=== PATIENT | female | born 1955 | race Caucasian/White ===

== ENCOUNTER 2019-06-24 16:05 | Emergency (ER) | payer MEDICARE, OTHER, SELFPAY ==
--- NOTE | ~2019-06-24 | XR_ITS ---
EXAMINATION: XR hip RT 2V w AP pelvis INDICATION: Right hip pain after fall TECHNIQUE: AP view the pelvis and two views of the right hip are obtained. COMPARISON: 10/18/2013 FINDINGS: There are unchanged surgical changes of the right pelvis and right proximal femur. There is no evidence of hardware failure or loosening. There appears to be subtle transverse lucency in the g reater trochanter of the right femur. There is moderate lumbar spondylosis. Mild left hip osteoarthri tis is noted. IMPRESSION: 1. Possible nondisplaced fracture of the greater trochanter of the right femur. Reviewed, dictated and finalized at location A. CHECK SCALER
--- NOTE | ~2019-06-24 | XR_ITS ---
EXAMINATION: XR shoulder RT min 2V INDICATION: Right shoulder pain TECHNIQUE: Four views of the right shoulder are submitted. COMPARISON: None FINDINGS: Normal alignment. No shoulder fracture. There is a subtle nondisplaced fracture of the righ t second rib. There is mild glenohumeral and acromioclavicular joint osteoarthritis. Calcified subcar inal lymph nodes are consistent with old granulomatous disease. IMPRESSION: 1. Nondisplaced right second rib fracture. 2. Mild osteoarthritis of the shoulder. Reviewed, dictated and finalized at location A. ING FIXER
--- NOTE | ~2019-06-24 | XR_ITS ---
EXAMINATION: [id number] INDICATION: Right chest pain after fall TECHNIQUE: A frontal view of the chest and 3 views of the right ribs were obtained. COMPARISON: None. FINDINGS: There is a subtle nondisplaced fracture of the second rib. The lungs are free of acute opac ities. No pleural effusion or pneumothorax is identified. The lung volumes are low. The heart size is normal. Calcified subcarinal lymph nodes are consistent with old granulomatous disease. There is mod erate thoracic spondylosis. IMPRESSION: 1. Subtle, nondisplaced fracture of the right second rib. Reviewed, dictated and finalized at location A. SORTER
[2019-06-24 16:22] VITALS: BP 130/99; PULSE 94; RESP 16; TEMP 36.2; O2SAT 97
--- NOTE | 2019-06-24 17:24 | ED.LOWEXIN ---
HPI - Extremity Injury (Lower) General Chief Complaint: Extremity Injury, Lower Stated Complaint: right hip pain after fall Time Seen by Provider: 06/24/19 16:11 Source: patient Mode of arrival: ambulatory Limitations: no limitations History of Present Illness HPI Narrative: The pt is a 64 y/o female who presents to the ED c/o right hip pain secondary to a fall which occurred this morning. The pt states that her pain is a 10/10, but her right hip is chronically painful. Pt states that she is unsure if her cane or leg gave out, but did fall and fell onto her right side. Pt states that she was concerned due to her having a PSHx of right hip replacement with multiple revisions; she states that she has neuropathy on the right side as well. Pt reports difficulty walking due to pain, right rib pain and RUE pain, but denies head injury, LOC, and SOB. Pt notes that her orthopedic surgeon is Dr. Cesar Loving at [place]. Pt notes that she does not have any anticoagulants, but does take prescription Hydrocodone for pain. complaint: hip injury Injury: Right: hip Place: home Severity scale (1-10): 10 (Chronically this painful as well) Context: fall Associated symptoms: other (Right hip pain, difficulty walking due to pain, RUE pain, right ribs pain) Other symptoms: none Related Data Home Medications Medication Instructions Recorded Confirmed alprazolam 0.5 mg tablet 0.5 mg PO QID tablet 04/17/19 hydrocodone 5 mg-acetaminophen 325 1 tablet PO Q6H PRN 04/17/19 mg tablet Allergies Allergy/AdvReac Type Severity Reaction Status Date / Time Penicillins Allergy Unknown Unknown Verified 06/24/19 17:07 Review of Systems Review of Systems: All systems reviewed & are unremarkable except as noted in HPI and below Respiratory: Respiratory: Denies dyspnea Musculoskeletal: Musculoskeletal: Reports arthralgias (Right hip) and Reports other (Difficulty walking due to pain, right ribs pain, RUE pain) Neurologic: Denies other (Head injury, loss of consciousness) [facility] Past Medical History Medical History (Updated 06/24/19 @ 19:54 by Marjan Morley MD) Abnormal CBC Anxiety Arthritis Avascular necrosis of bone of right hip Bladder prolapse Chronic constipation Chronic right hip pain Depression Elevated glucose Fibroids GERD (gastroesophageal reflux disease) Hyperlipidemia Hypothyroid Neuropathy of right foot Osteopenia Osteoporosis Surgical History Surgical History (Updated 06/24/19 @ 17:39 by Pedro Marcus) H/O dilation and curettage H/O knee surgery Nerve decompression in knee H/O prior ablation treatment Nerve ablations H/O tubal ligation H/O vascular surgery Right groin arterial coil H/O: hysterectomy History of right hip replacement Multiple revisions Hx of tonsillectomy Social History Social History (Updated 06/24/19 @ 17:44 by Pedro Marcus) Smoking status: Former smoker Second hand tobacco smoke exposure: No Alcohol intake: current Substance use: current Substance use type: prescription drug Other substance usage details: Patient uses prescription Hydrocodone for pain. Gender identity (if verbalized by the patient): Female Comments PCP: Dr. Merritt Orthopedist: Dr. Loving Exam Narrative: Exam Narrative: GENERAL: Well-appearing, well-nourished, and in no acute distress. HEAD: Normocephalic, atraumatic EYES: PERRLA and EOMI, conjunctiva clear without discharge THROAT:Mucous membranes moist, Oropharynx normal without erythema, exudate, peritonsillar swelling or fluctuance NECK: Supple, without lymphadenopathy or mass RESPIRATORY: No respiratory distress, Airway patent, Respirations non-labored, Clear to auscultation without rales, rhonchi or wheeze, right lateral rib tenderness HEART: Regular rate and rhythm. No murmur heard. Normal peripheral pulses. ABDOMEN: Soft, nontender, nondistended, normal active bowel sounds. No masses. No rebound or guarding, No organomegaly. EXT
[2019-06-24] MEDS: HYDROMORPHONE HCL 1 MG/ML INJ 0.5 MG IV PUSH (18:11)
[2019-06-24] MEDS: ONDANSETRON INJ 4 MG/2 ML VIAL IV PUSH (18:11)
== END 2019-06-24 20:29 | disposition home or self-care (01) ==
PROVIDERS: Emergency Provider General Practice; PCP Family Medicine
DX: S72.114A Nondisplaced fracture of greater trochanter of right femur, initial encounter for closed fracture (principal); S22.31XA Fracture of one rib, right side, initial encounter for closed fracture; M19.011 Primary osteoarthritis, right shoulder; Z87.891 Personal history of nicotine dependence; Z96.641 Presence of right artificial hip joint; F41.9 Anxiety disorder, unspecified; F32.9 Major depressive disorder, single episode, unspecified; K21.9 Gastro-esophageal reflux disease without esophagitis; E78.5 Hyperlipidemia, unspecified; E03.9 Hypothyroidism, unspecified; M85.80 Other specified disorders of bone density and structure, unspecified site; M81.0 Age-related osteoporosis without current pathological fracture; M16.12 Unilateral primary osteoarthritis, left hip; W18.30XA Fall on same level, unspecified, initial encounter
CPT/HCPCS: 71101; 73030; 73502; 73521; 96374; 96375; 99284; J1170; J2405

== ENCOUNTER 2021-10-20 08:29 | Outpatient (CLI) | payer MEDICARE, OTHER, SELFPAY ==
--- NOTE | ~2021-10-20 | NM_ITS ---
EXAMINATION: NM amna stress w perfusion DATE: 10/20/2021 12:00 INDICATION: Chest pain. TECHNIQUE: Rest images were obtained following intravenous administration of 11.1 mCi Tc99m tetrofosm in (Myoview). The patient was infused intravenously with Lexiscan (regadenoson). Then, 33.6 mCi Tc99m tetrofosmin (Myoview) was administered intravenously, and stress images were obtained. Data was bhaskar nstructed into short axis and horizontal and vertical long axis SPECT images. Gated SPECT images were also obtained. COMPARISON: None. FINDINGS: There is no definite reversible or fixed perfusion abnormality to suggest ischemia or infar ction. There is no segmental wall motion abnormality. Left ventricular ejection fraction measures 7 0%. IMPRESSION: 1. No definite ischemia or infarct. 2. Normal left ventricular ejection fraction measuring 70%. Reviewed, dictated and finalized at location B.
--- NOTE | 2021-10-20 08:35 | EST_ITS ---
Patient Info Name: Amparo Jacobo Age: 66 years : 1955 Gender: Female Ht: 66 in Wt: 180 lbs BSA: 1.97 m2 HR: 68 bpm BP: 154 / 86 mmHg Heart Rhythm: Sinus Rhythm Exam Date: 10/20/2021 9:49 AM Exam Location: [facility] Stress Patient Status: Outpatient Admit Date: 10/20/2021 Staff Ordering Physician: Avni Jackson NP Attending Provider: Avni Jackson NP Exercise Technologist: Mimi Spann CT Exercise Physician: Jaxson Fenton DO Exam Type: CA stress amna w NM Study Info Indications R07.9 - Chest pain, unspecified A regadenoson stress test was performed. Summary 1. 1. Negative lexiscan stress test for ischemic ST changes by ECG criteria. 2. 2. Baseline hypertension. 3. 3. Nuclear scan to follow and will be reported separately. Please correlate with it. 4. 4. Patient informed of the above results. Protocol: Lexiscan Rest HR: 74 bpm Peak HR: 114 bpm Rest Sys BP: 154 mmHg Peak Sys BP: 167 mmHg Max Pred HR: 155 bpm % Max Pred HR: 74 % Target HR: 132 bpm Max RPP: 19,038 bpm*mmHg Termination Reason: Completed protocol Cardiac Symptoms: Shortness of breath Total Time: 1 min : 0 sec Rest Manzo BP: 94 mmHg Peak Manzo BP: 79 mmHg Total Dose: 0.4 mg Resting ECG Sinus rhythm. Stress ECG No ST changes. Arrhythmias None. Report Signatures Amended by Jaxson Fenton DO on 10/20/2021 11:31
== END 2021-10-20 08:30 | disposition home or self-care (01) ==
PROVIDERS: PCP Family Medicine; Visit Provider Nurse Practitioner Family
DX: R07.9 Chest pain, unspecified (principal)
CPT/HCPCS: 78452; 93017; A9502; J2785

== ENCOUNTER 2024-02-02 09:38 | Outpatient (CLI) | payer MEDICARE, OTHER, SELFPAY ==
--- NOTE | ~2024-02-02 | XR_ITS ---
XR chest 2V w BI decubitus Ordering provider: Lashay Jackson NP History: 68 years Female with . R52 - Pain, unspecified . Comparison: February 10, 2008 FINDINGS: MEDIASTINUM: The cardiac silhouette is not enlarged. LUNGS: No infiltrates, effusions or pneumothorax. OTHER: No free air under the diaphragm. Degenerative changes of the spine. IMPRESSION: No acute cardiopulmonary pathology. Reviewed, dictated and finalized at location A.
== END 2024-02-02 09:39 | disposition home or self-care (01) ==
LOC: MICIMG 09:39
PROVIDERS: PCP Family Medicine
DX: R52 Pain, unspecified (principal); Z91.81 History of falling
CPT/HCPCS: 71048

== ENCOUNTER 2024-02-08 09:58 | Outpatient (CLI) | payer MEDICARE, OTHER, SELFPAY ==
--- NOTE | ~2024-02-08 | XR_ITS ---
Left Hand Technique: PA, oblique, and lateral views were obtained. Clinical History: Osteoarthritis Findings: No acute fracture or dislocation is seen. Osseous alignment is anatomic. There is moderate degenerative change of the second and third DIP joints. There is minimal degenerative change of the f irst CMC joint. Soft tissues are unremarkable. Impression: Degenerative changes, as above. Reviewed, dictated and finalized at location M. Impression: Degenerative changes, as above.
--- NOTE | ~2024-02-08 | XR_ITS ---
Right Hand Technique: PA, oblique, and lateral views were obtained. Clinical History: Osteoarthritis Findings: No acute fracture or dislocation is seen. Osseous alignment is anatomic. There is moderate degenerative change of the second and third DIP joints. There is minimal degenerative change of the f irst CMC joint and first MCP joint. Soft tissues are unremarkable. Impression: Degenerative changes, as above. Reviewed, dictated and finalized at location M. Impression: Degenerative changes, as above.
== END 2024-02-08 09:59 | disposition home or self-care (01) ==
PROVIDERS: PCP Family Medicine; Visit Provider Physician Assistant Surgical
DX: M18.12 Unilateral primary osteoarthritis of first carpometacarpal joint, left hand (principal); M18.11 Unilateral primary osteoarthritis of first carpometacarpal joint, right hand
CPT/HCPCS: 73130

== ENCOUNTER 2024-04-26 07:56 | Day surgery (SDC) | payer MEDICARE, OTHER, SELFPAY ==
[2024-04-21 10:25] VITALS: BMI 28.8
[2024-04-24 11:12] VITALS: BMI 26.6
--- NOTE | 2024-04-26 06:52 | P.PNAN_ITS ---
Anes - Initial Pre Proc Eval Procedure: Operation Date: 04/26/24 10:00 Proposed Procedures p Diagnostic Colonoscopy - Renato Dickinson MD Date/Time: 04/26/24 06:52 Surgeon: Renato Dickinson MD Pre Op Diagnosis: Family HX of Colonic Polyp and Colon Cancer. Patient Data Age: 68 Gender: F Height: 1.7 m Weight: 77 kg Allergies Allergy/AdvReac Type Severity Reaction Status Date / Time Penicillins AdvReac Intermediate Hives Verified 04/26/24 08:48 ezetimibe (From Zetia) AdvReac Mild Abdominal Verified 04/26/24 08:48 Pain rosuvastatin (From Crestor) AdvReac Mild muscle Verified 04/26/24 08:48 weakness and cramping Home Medications ?Medication ?Instructions ?Recorded ?Confirmed ?Type hydrocodone 5 mg-acetaminophen 325 1 tablet PO Q6H PRN Pain, Mild 04/17/19 04/24/24 History mg tablet calcium carbonate 600 mg PO BID 03/24/22 04/24/24 History cholecalciferol (vitamin D3) 50 50 mcg PO DAILY 03/24/22 04/24/24 History mcg (2,000 unit) capsule flaxseed oil 1,000 mg capsule 1,000 mg PO .QD 07/22/22 04/24/24 History alprazolam 0.5 mg tablet (Xanax) 0.5 mg PO QID PRN anxiety #120 tabs 09/28/23 04/24/24 Rx omeprazole 40 mg capsule,delayed See Rx Instructions .Route 10/24/23 04/24/24 Rx release .COMPLEX #90 caps thyroid (pork) 60 mg tablet 60 mg PO DAILY #90 tabs 12/29/23 04/24/24 Rx ([place] Thyroid) duloxetine 60 mg capsule,delayed 60 mg PO DAILY #90 caps 01/26/24 04/24/24 Rx release cinnamon bark 500 mg capsule 500 mg PO DAILY 02/08/24 04/24/24 History lactobacillus combination no.9 1 cap PO DAILY 02/08/24 04/24/24 History bupropion HCl 150 mg 24 hr tablet, 150 mg PO DAILY 04/24/24 04/24/24 History extended release Patient hx anesthesia problems: none Family hx anesthesia problems: none Results Review: All pre-operative results and documents have been reviewed as part of the pre- operative evaluation. [facility] Past Medical History Medical History (Updated 04/26/24 @ 06:53 by Nils Davis DO) TMJ (temporomandibular joint disorder) Chronic, continuous use of opioids BMI 29.0-29.9,adult BMI 28.0-28.9,adult Chronic right hip pain Anxiety Depression Hypothyroid Osteopenia Osteoporosis Arthritis Bladder prolapse Fibroids GERD (gastroesophageal reflux disease) Chronic constipation Avascular necrosis of bone of right hip Neuropathy of right foot Elevated glucose Hyperlipidemia Abnormal CBC Surgical History Surgical History H/O vascular surgery Right groin arterial coil H/O dilation and curettage H/O prior ablation treatment Nerve ablations H/O knee surgery Nerve decompression in knee H/O: hysterectomy H/O tubal ligation History of right hip replacement Multiple revisions Hx of tonsillectomy Family History Family History Father Hypertension Carcinoma of colon Tobacco abuse Grandparent Diabetes mellitus Acute myocardial infarction Heart disease Cerebrovascular accident Mother Dementia Depression Sibling Skin cancer Social History Social History Smoking status: Never smoker Second hand tobacco smoke exposure: Yes Alcohol intake: current Substance use: current Substance use type: prescription drug Other substance usage details: Patient uses prescription Hydrocodone for pain. 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 Informed Consent: The patient's anesthetic plan and its attendant risks and benefits were discussed with the patient/family/POA. Questions were solicited and answers provided to the satisfaction of the patient/family/POA.
[2024-04-26] MEDS: LACTATED RINGERS 1,000 ML 150 ML IV CONT (08:46)
[2024-04-26 08:54] VITALS: BP 150/85; PULSE 89; RESP 18; TEMP 36.6; O2SAT 96
--- NOTE | 2024-04-26 09:04 | PM.HPGS ---
History of Present Illness History of Present Illness Consent: Risks, benefits, and alternatives have been discussed and questions answered. Patient agrees to proceed with procedure. Chief complaint: Family HX of Colonic Polyp and Colon Cancer. Narrative: Amparo Jacobo is a 68 year old female presents for screening colonoscopy. Patient's father had colon cancer. Patient has had screening colonoscopies that have been unremarkable. Most recent colonoscopy 5 years ago was unremarkable. She reports that current weight appetite and bowel movements are normal. Review of Systems Review of Systems: All systems reviewed & are unremarkable except as noted in HPI and below PMFSH Past Medical History Medical History (Updated 04/26/24 @ 09:06 by Renato Dickinson MD) TMJ (temporomandibular joint disorder) Chronic, continuous use of opioids BMI 29.0-29.9,adult BMI 28.0-28.9,adult Chronic right hip pain Anxiety Depression Hypothyroid Osteopenia Osteoporosis Arthritis Bladder prolapse Fibroids GERD (gastroesophageal reflux disease) Chronic constipation Avascular necrosis of bone of right hip Neuropathy of right foot Elevated glucose Hyperlipidemia Abnormal CBC Surgical History Surgical History H/O vascular surgery Right groin arterial coil H/O dilation and curettage H/O prior ablation treatment Nerve ablations H/O knee surgery Nerve decompression in knee H/O: hysterectomy H/O tubal ligation History of right hip replacement Multiple revisions Hx of tonsillectomy Family History Family History Father Hypertension Carcinoma of colon Tobacco abuse Grandparent Diabetes mellitus Acute myocardial infarction Heart disease Cerebrovascular accident Mother Dementia Depression Sibling Skin cancer Social History Social History Smoking status: Never smoker Second hand tobacco smoke exposure: Yes Alcohol intake: current Substance use: current Substance use type: prescription drug Other substance usage details: Patient uses prescription Hydrocodone for pain. 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 Gender identity (if verbalized by the patient): Female Spiritual care concerns: No Meds Home Medications and Allergies Home Medications ?Medication ?Instructions ?Recorded ?Confirmed ?Type hydrocodone 5 mg-acetaminophen 325 1 tablet PO Q6H PRN Pain, Mild 04/17/19 04/24/24 History mg tablet calcium carbonate 600 mg PO BID 03/24/22 04/24/24 History cholecalciferol (vitamin D3) 50 50 mcg PO DAILY 03/24/22 04/24/24 History mcg (2,000 unit) capsule flaxseed oil 1,000 mg capsule 1,000 mg PO .QD 07/22/22 04/24/24 History alprazolam 0.5 mg tablet (Xanax) 0.5 mg PO QID PRN anxiety #120 tabs 09/28/23 04/24/24 Rx omeprazole 40 mg capsule,delayed See Rx Instructions .Route 10/24/23 04/24/24 Rx release .COMPLEX #90 caps thyroid (pork) 60 mg tablet 60 mg PO DAILY #90 tabs 12/29/23 04/24/24 Rx ([place] Thyroid) duloxetine 60 mg capsule,delayed 60 mg PO DAILY #90 caps 01/26/24 04/24/24 Rx release cinnamon bark 500 mg capsule 500 mg PO DAILY 02/08/24 04/24/24 History lactobacillus combination no.9 1 cap PO DAILY 02/08/24 04/24/24 History bupropion HCl 150 mg 24 hr tablet, 150 mg PO DAILY 04/24/24 04/24/24 History extended release Allergies Allergy/AdvReac Type Severity Reaction Status Date / Time Penicillins AdvReac Intermediate Hives Verified 04/26/24 08:48 ezetimibe (From Zetia) AdvReac Mild Abdominal Verified 04/26/24 08:48 Pain rosuvastatin (From Crestor) AdvReac Mild muscle Verified 04/26/24 08:48 weakness and cramping Vital Signs Vital Signs - 24 hr 04/26/24 08:54 Temperature 97.9 F Pulse Rate 89 Respiratory Rate 18 Blood Pressure 150/85 H Pulse Oximetry 96 Oxygen Delivery Room Air Exam Narrative: Physical exam reveals patient signs stable. HEENT exam is unremarkable. Patient is anicteric. Lungs are clear to auscultation and to percussion. Heart is without murmur or extra sounds. Abdomen bowel sounds are present soft nontender with no organomegaly. Digital external rectal exam is normal. Assessment and Plan Assessment and plan (1) Family history of colon cancer in father: Code(s): Z80.0 - Family history of malignant neoplasm of digestive organs Status: Acute Assessment and Plan: Patient's father had colon cancer. Plan for surveillance colonoscopy now and consider this at 5 year intervals.
[2024-04-26 10:49] VITALS: BP 106/66; PULSE 84; RESP 14; O2SAT 94
[2024-04-26 10:59] VITALS: BP 117/74; PULSE 65; RESP 15; O2SAT 100
[2024-04-26 11:09] VITALS: BP 123/71; PULSE 69; RESP 14; O2SAT 100
--- NOTE | 2024-04-26 11:29 | WPDANESPN ---
Anes - Prog Note Post-Op Date/Time: 04/26/24 11:29 Cardiovascular status: normal Respiratory status: normal Airway patency: baseline Mental status: baseline Post-Op hydration status: normal Vital Signs: Last Vital Signs Temp 36.6 C 04/26/24 08:54 Pulse 69 04/26/24 11:09 Resp 14 04/26/24 11:09 BP 123/71 04/26/24 11:09 Pulse Ox 100 04/26/24 11:09 O2 Del Method Room Air 04/26/24 11:09 Pain Score (VAS): 0 I/O: Intake & Output 04/25/24 04/26/24 04/26/24 23:59 07:59 15:59 Intake Total 1100 Balance 1100 Post-procedural complaints: none Patient Feedback: Patient satisfied with anesthetic care. Other Findings: Patient vital signs back to baseline. Patient denies nausea and vomiting. Patient's pain under control. Patient OK for discharge.
== END 2024-04-26 11:16 | disposition home or self-care (01) ==
PROVIDERS: PCP Family Medicine; Visit Provider Internal Medicine Gastroenterology
PROC: 0DJD8ZZ Inspection of Lower Intestinal Tract, Via Natural or Artificial Opening Endoscopic (ICD-10-PCS; CPT 45378; principal; 2024-04-26 10:00)
DX: Z80.0 Family history of malignant neoplasm of digestive organs (principal); K57.30 Diverticulosis of large intestine without perforation or abscess without bleeding; K64.8 Other hemorrhoids
CPT/HCPCS: G0105

== ENCOUNTER 2024-12-28 09:05 | Outpatient (CLI) | payer MEDICARE, OTHER, SELFPAY ==
--- NOTE | ~2024-12-28 | MR_ITS ---
MRI of the lumbar spine Clinical History: Polyneuropathy Technique: Axial T2-weighted images, and sagittal T1-weighted, T2-weighted, and T2 fat-sat images were acquired. Findings: No acute fracture seen. There is 3 mm retrolisthesis of L1 over L2. There is 4 mm retrolisthesis of L2 over L3. There is 6 mm retrolisthesis of L3 over L4. No suspicious bone marrow signal abnormality seen. At L1-L2, there is advanced degenerative disc narrowing. There is mild disc bulge and mild facet arthropathy. No central canal stenosis. There is moderate to advanced right neural foraminal narrowing. Left neural foramen preserved. At L2-L3, there is advanced degenerative distended. There is mild disc bulge and moderate facet arthropathy. No central canal stenosis. There is moderate to advanced right neural foraminal narrowing. Left neural foramen preserved. At L3-L4, there is diffuse disc bulge with advanced facet arthropathy. No central canal stenosis. There is mild left neural foraminal narrowing, and moderate to advanced right neural foraminal narrowing. At L4-L5, there is disc bulge with advanced facet arthropathy. No central canal stenosis. There is severe left neural foraminal narrowing, and minimal right neural foraminal narrowing. At L5-S1, there is no disc bulge or herniation. No spinal canal stenosis or neural foraminal narrowing. Paravertebral soft tissues are unremarkable. Impression: Multiple grade 1 listheses, as above. Moderate degenerative spondylosis overall, as detailed above. Reviewed, dictated and finalized at [facility]. Impression: Multiple grade 1 listheses, as above. Moderate degenerative spondylosis overall, as detailed above.
== END 2024-12-28 09:06 | disposition home or self-care (01) ==
LOC: GOSHIMG 09:06
PROVIDERS: PCP Nurse Practitioner Family; Visit Provider Nurse Practitioner Family
DX: G62.9 Polyneuropathy, unspecified (principal); R29.898 Other symptoms and signs involving the musculoskeletal system; M47.27 Other spondylosis with radiculopathy, lumbosacral region
CPT/HCPCS: 72148

== ENCOUNTER 2025-03-12 10:34 | Outpatient (CLI) | payer MEDICARE, OTHER, SELFPAY ==
--- NOTE | ~2025-03-12 | DEXA_ITS ---
Bone Density Report Name: JUAN EASTMAN Age: 69 Sex: Female Ethnicity: White Date of : 1955 Indication: postmenopausal; screening for osteoporosis; parental hip fracture; height loss; prior fracture; cancer; hysterectomy; Referring Provider: MONAE OLIVEROS Study: Bone densitometry was performed. Exam Date: March 12, 2025 Accession number: [id number] Bone Density: Region BMD T-score Z-score Classification AP Spine(L1-L4) 1.030 -0.2 1.9 Normal Femoral Neck (Left) 0.644 -1.9 -0.1 Osteopenia Total Hip (Left) 0.844 -0.8 0.6 Normal World Health Organization criteria for BMD impression classify patients as: Normal (T-score at or above -1.0), Osteopenia (T-score between -1.0 and -2.5), or Osteoporosis (T-score at or below -2.5). 10-year Fracture Risk: FRAX not reported because: Prior hip or vertebral fracture Previous Exams: Region Exam Age BMD T-score BMD Change BMD Change Date g/cm2 vs Baseline vs Previous Total Hip(Left) 03/12/2025 69 0.844 -0.8 0.045 (5.6%)* 0.012 (1.4%) 04/21/2018 62 0.832 -0.9 0.033 (4.1%)* 0.025 (3.1%) 03/30/2016 60 0.808 -1.1 0.008 (1.0%) 0.008 (1.0%) 03/20/2014 58 0.799 -1.2 *Denotes significance at 95% confidence level, LSC for Total Hip = 0.027 g/cm2 Clinical Information Provided by Patient: Have had a previous hip or vertebral fracture Has had a low trauma fracture Parent has had a hip fracture Has used the following medications: Actonel (i.e. risedronate), Vitamin D, Calcium Has the following medical conditions: Cancer, Hysterectomy Patient maximum height was 67.0 Menopause Age: 39 No regular weight bearing exercise Drinks caffeinated beverages Onset of menses at age 13 Number of children 2 Impression: The patient has low bone mass, based on the Left Femoral Neck T-score. The patient has risk factors, including: parental hip fracture, previous fracture. No significant bone loss was observed. Discussion: INCREASED RISK OF FRACTURE DUE TO HISTORY OF FRACTURE. The patient's previous fracture puts the patient at high risk of a future fracture. In untreated patients, the risk of osteoporotic fracture increases approximately two-fold for each 1.0 SD decrease in T-score. Low bone density is not the only risk factor for fracture; also consider factors such as patient's age, frailty or poor health, risk of falling, risk of injury, previous osteoporotic fracture, family history of osteoporosis, cigarette smoking, low body weight, etc. Not everyone with a low trauma fracture has osteoporosis; osteomalacia and other metabolic bone disorders should also be considered. Patients who have osteoporosis should be evaluated for specific diseases and conditions (secondary causes) that may cause or contribute to bone loss and fracture risk. National Osteoporosis Foundation (NOF) recommends pharmacologic intervention for patients with a prior hip or vertebral fracture regardless of BMD T-score. The patient should follow a healthful lifestyle (good nutrition with adequate calcium and vitamin D, and appropriate weight-bearing exercise). Follow-Up: Consider a repeat BMD and Vertebral Fracture Assessment (VFA) exam in 2 years or sooner if medically necessary, to reassess this patient's status. Reported by: JODY on 03/12/2025 11:14:00 AM. Reviewed, dictated and finalized at location A.
--- OUTSIDE RECORDS SUMMARY | 2025-03-12 11:39 | XMS_ITS | Clinical Summary ---
Author Organization [facility] Address [address] [place] [address] Care Team Providers Care Brand Strategy Manager Name Role Phone Unavailable Primary Care Provider Unavailabl e Source Comments [facility],non-owned Affiliates and Associated Physician Practices is amultiple site organization consisting of ambulatory clinics and hospital sitesin [place], [place], [place] and [place]. This disclosure is being madepursuant to the Care Everywhere program and may not contain all information available regarding this patient. Last updated 18.[facility] Social History Tobacco Use Types Packs/Day Years Used Date Smoking Tobacco: Never Assessed Comments Unknown Sex and Gender Information Value Date Recorded Sex Assigned at Not on file Legal Sex Female 2:11 PM CDT Gender Identity Not on file Sexual Orientation Not on file Plan of Treatment Health Maintenance Due Date Last Done Comments BONE DENSITY TESTING 1955 COLOGUARD (AGES 45-75) - COL ON CA SCREENING 1955 COLON MONITORING 1955 COLONOSCOPY - COLON CA SCREENING 1955 CT COLONOGRAPHY - COLON CA SCREENING 1955 Colorectal Cancer Screening 1955 FIT - COLON CA SCREENING 1955 FLEX SIG - COLON CA SCREENING 1955 LIPID TESTING 1955 MAMMOGRAM 1955 MEDICARE AWV 12 MONTHS 1955 HEPATITIS C SCREENING 06/09/1974 DTAP/TDAP/TD VACCINES (1 - Tdap) 1975 PNEUMOCOCCAL VACCINE 50+ (1 of 1 - PCV) 2006 ZOSTER VACCINE (1 of 2) 2006 DEPRESSION SCREENING 05/10/2024 COVID-19 VACCINE (1 - 2023-2 5 season) 2025 INFLUENZA VACCINE (#1) 2025 Respiratory Syncytial Virus (RSV) Vaccine Pt: or over 60 yrs (1 - 1-dose 75+ series) 2031 HEPATITIS B VACCINE Aged Out No longe r eligible based on patient's age to complete this topic HIB VACCINE Aged Out No longer eligi ble based on patient's age to complete this topic HPV VACCINE Aged Out No longer eligi ble based on patient's age to complete this topic MENINGOCOCCAL (Group B) VACC INE SHARED DECISION-MAKING Aged Out No longer eligibl e based on patient's age to complete this topic MENINGOCOCCAL GROUPS A/C/Y/W VACCINE Aged Out No longer eligible b ased on patient's age to complete this topic Insurance MEDICARE
--- OUTSIDE RECORDS SUMMARY | 2025-03-12 11:39 | XMS_ITS | Data Portability ---
Author Organization [facility] [place], [place] Address [address] [place] [address] Care Team Providers Care Cook Ship Name Role Phone SYLVIA BARRON Primary Care Provider Assessment Encounter Date Assessment Date Assessment LastModified by Organization Details LastModified Time 08/25/2023 08/25/2023 Annual gynecological exam performed. Patient will come back in a year unless there are new symptoms. [email or web address] Not available 08/25/2023 09:14:34 Plan of Treatment Reminders Order Date Submit Date Provider Last Modified By Organization Details Last Modified Time Details Appointments UTI 2024 08:30A Estela VELASCO MD Not available Not available Not available Lab None recorded. Referral None recorded. Procedures None recorded. Surgeries None recorded. Imaging MAMMO, screening , bilateral 2023 024 [email or web address] [facility] (Imaging & Mammogram), [address] [place], [address], 03/21/2024 09:55:26 Medication Orders estradiol 0.01% (0.1 mg/gram) vaginal cream 2023 024 [id number], [address], [place], [id number], 12/17/2023 15:56:20 Patient TargetsNo targets recorded. Patient InstructionsNo instructions recorded. Reason for Referral None Reported. Results Created Date Observation Date Name Description Value Unit Range Abnormal Flag Note LastModifiedBy Organization Detail LastModifiedTime 05/06/20 21 05/06/2021 CULTU RE: URINE result report SEE RESULT S BELOW Test: Cultu re: Urine Speci men Sourc e: Urine Voide d Speci men Type: Urine Speci men Date: 05/06 4:41 PM Resul t Date: 05/07 9:13 PM Resul t Statu s: Final resul t Abnor mal: No Resul ting Lab: [facility] [address] [facility] [address] Tel: CULTU RE ----- ----- ----- --- No growt h in 1 day (dete ction level of 10,00 0 colon ies / ml.) Not Available [facility] (Lab) [address], [place], [address], 05/07/2021 22:16:24 05/06/20 21 05/06/2021 urina lysis , dipst ick Leukocytes trace Not Available [facility] [address], [place], [address], 05/06/2021 14:27:57 05/06/20 21 05/06/2021 urina lysis , dipst ick Nitrite neg Not Available [place] [address], [place], [address], 05/06/2021 14:27:57 05/06/20 21 05/06/2021 urina lysis , dipst ick Urobilinogen neg Not Available [facility] alek [address], [place], [address], 05/06/2021 14:27:57 05/06/20 21 05/06/2021 urina lysis , dipst ick Protein neg Not Available [place] [address], [place], [address], 05/06/2021 14:27:57 05/06/20 21 05/06/2021 urina lysis , dipst ick pH 5 Not Available [place] [address], [place], [address], 05/06/2021 14:27:57 05/06/20 21 05/06/2021 urina lysis , dipst ick Blood + Not Available [place] [address], [place], [address], 05/06/2021 14:27:57 05/06/20 21 05/06/2021 urina lysis , dipst ick Specific [place] 1.000 Not Available [facility] [address], [place], [address], 05/06/2021 14:27:57 05/06/2005/06/2021 urina lysis , dipst ick Ketone neg Not Available [place] [address], [place], [address], 05/06/2021 14:27:57 05/06/20 21 05/06/2021 urina lysis , dipst ick Bilirubin neg Not Available [facility] [address], [place], [address], 05/06/2021 14:27:57 05/06/2005/06/2021 urina lysis , dipst ick Glucose neg Not Available [place] [address], [place], [address], 05/06/2021 14:27:57 05/06/20 21 05/06/2021 urina lysis , dipst ick Appearance clear Not Available [facility] madalyn [address], [place], [address], 05/06/2021 14:27:57 05/06/20 21 05/06/2021 urina lysis , dipst ick Color straw. Not Available [place] [address], [place], [address], 05/06/2021 14:27:57 Result Notes None recorded. Problems Name Problem SNOMED Code Status Onset Date Resolution Date Notes Provider Name and Address Organization Details Recorded Time Midline cystocel e 343014498 Completed 201105/05/2021 Cystocele , midline;P [facility] ID: [id number] [facility]12 Microsco pic hematuri a [id number] Completed 201105/05/2021 HEMATURIA MICROSCOP IC;Practi ce ID: [id number] Berta Rothman [facility] 20:12:06 Increase d frequenc y of urinatio n [id number] Completed 201105/05/2021 Urinary frequency ;Practice ID: 0001 Berta Rothman [facility] 20:11:58 Abrasion and/or friction burn of trunk without infectio n [id number] Completed 201405/05/2021 Abrasion or friction burn of trunk, without mention of infection ;Practice ID: [id number] Berta Rothman [facility] 20:11:35 Blood leukocyt e number above referenc e range [id number] Completed 201405/05/2021 Elevated white blood cell count, unspecifi ed;Record ed Elsewhere : No Locati on: [facility] So urce: EHR Chron ic: N Practic e ID: 0001 Bill able Time: 04:30:00 PM [facility] 20:11:54 Menopaus e Completed 201405/05/2021 Asymptoma tic menopausa l state;Rec orded Elsewhere : No Locati on: [facility] So urce: EHR Chron ic: N Practic e ID: 0001 Bill able Time: 04:30:00 PM Berta Rothman [facility] 20:12:[address] Concept Completed 201405/05/2021 Encntr for general adult medical exam w/o abnormal findings; Practice ID: [id number] Berta Rothman [facility] 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 20:12:24 Screenin g for malignan t neoplasm of rectum Completed 201405/05/2021 Encounter for screening for malignant neoplasm of rectum;Pr actice ID: [id number] [facility] 20:12:16 Disorder of pelvic region of trunk Completed 201605/05/2021 Cystocele , unspecifi ed;Record ed Elsewhere : No Locati on: [facility] So urce: EHR Chron ic: N Practic e ID: 0001 Bill able Time: 09:30:00 AM Berta Rothman [facility] 20:11:39 Problem Notes None recorded. Procedures Surgical History Date Name Laterality Status Provider Name and Address Organization Details Recorded Time 12/17/19 24 Pessary Check completed NGHIA SETH MD [address], [place], [address], [facility] 12/17/2023 15:54:17 11/01/19 21 Date of Last Mammogram completed [facility] 05/06/2021 14:22:24 05/10/19 19 Most Recent Bone Density completed [facility] 05/06/2021 14:24:18 04/16/20 18 Date of Last Colonoscopy completed [facility] 05/06/2021 14:22:24 05/10/19 18 Colonoscopy completed Mckenzie Arvizu [facility] 06/19/2021 11:50:17 05/10/19 14 decompression of nerve completed [facility] 06/19/2021 11:51:40 05/10/19 13 Colonoscopy completed [facility] 06/19/2021 11:58:54 05/10/19 11 decompression of nerve completed [facility] 06/19/2021 11:51:38 02/29/20 09 Orthopedic Surgery completed Mei Whitney [facility] 02/01/2024 17:45:02 05/10/19 08 total replacement of hip completed [facility] 06/19/2021 11:51:06 05/10/19 05 total replacement of hip completed [facility] 06/19/2021 11:51:03 05/10/18 98 Total Hysterectomy completed [facility] 06/19/2021 11:58:41 05/10/18 94 total replacement of hip completed [facility] 06/19/2021 11:51:00 05/10/18 90 Tubal Ligation completed [facility] 06/19/2021 11:51:19 Imaging Results None recorded. Procedure Notes None recorded. Medical Equipment None Reported. Allergies Allergen ID Allergen Name Allergen Category Reaction Reaction Severity Criticality Documentation Date Start Date Code Code System Note Provider Name and Address Organization Details Recorded Time 57356 Product containin g penicilli n (product) medicatio n Not available Not available Not available 04/26/2020 60496 8001 SNOMED Comme nt: [facility]at [facility]; Not Available [facility] 0 14:17:52 Medications Name Sig Start Date Stop Date Status Note LastModified by Organization Details LastModified Time nystatin/ m-pap/m-d ryl/dex 08/24 completed Not Available Not Available Not Available cyclobenz aprine 10 mg tablet active Not Available Not Available No t Available [place] Thyroid 60 mg tablet TAKE 1 TABLET BY MOUTH DAILY active Not Available Not Available No t Available prednison e 10 mg tablet TAKE 3 TABLETS BY MOUTH DAILY 05/05 completed Not Available Not Available Not Available azithromy mihai 250 mg tablet TAKE 2 TABLETS BY MOUTH FOR 1 DAY THEN TAKE 1 TABLET BY MOUTH DAILY active Not Available Not Available No t Available clarithro mycin 500 mg tablet TAKE 1 TABLET BY MOUTH EVERY 12 HOURS 03/12 completed Not Available Not Available Not Available hydrocodo ne 5 mg-acetam inophen 325 mg tablet TAKE 1 TABLET BY MOUTH EVERY 8 HOURS NEEDED FOR PAIN active Not Available Not Available No t Available [place] Thyroid 120 mg tablet 05/05 completed Prescrib ed Elsewher e: Yes Loca tion: [facility] odify By: parisa miguel DateTime : 11/10/19 12 02:00:00 PM Not Available Not Available Not Available omeprazol e 40 mg capsule,d elayed release TAKE 1 CAPSULE BY MOUTH DAILY active Not Available Not Available No t Available doxycycli ne monohydra te 100 mg tablet TAKE 1 TABLET BY MOUTH TWICE DAILY FOR 7 DAYS 03/12 completed Not Available Not Available Not Available Macrobid 100 mg capsule take 1 capsule (100MG) by oral route every 12 hours with food 11/19 completed Prescrib ed Elsewher e: No Locat ion: [facility] odify By: zully chavez DateTime : 02/04/20 12 03:45:00 PM Not Available Not Available Not Available meloxicam 7.5 mg tablet active Not Available Not Available Not Available alprazola m 0.5 mg tablet TAKE 1 TABLET BY MOUTH FOUR TIMES DAILY NEEDED FOR ANXIETY active Not Available Not Available No t Available flaxseed oil 1000 mg capsule 1 capsule every day by oral route. active Not Available Not Available No t Available Prilosec 10 mg capsule,d elayed release take 2 capsule by oral route every day before a meal 05/05 completed Prescrib ed Elsewher e: Yes Loca tion: [facility] odify By: zully chavez DateTime : 02/13/20 15 04:30:00 PM Not Available Not Available Not Available baclofen 10 mg tablet take 1 tablet by oral route 4 times every day 05/05 completed Prescrib ed Elsewher e: Yes Loca tion: Mae araujo [facility] odify By: amjayda chavez DateTime : 02/26/20 17 09:30:00 AM Not Available Not Available Not Available cephalexi n 500 mg capsule TAKE 1 CAPSULE BY MOUTH EVERY 6 HOURS. START 24 HOURS PRIOR TO APPOINTM ENT AND CONTINUI NG FOR 24 HOURS AFTER APPOINTM ENT 03/12 completed Not Available Not Available Not Available estradiol 0.01% (0.1 mg/gram) vaginal cream INSERT 1 GRAM VAGINALL Y 3 TIMES A WEEK active Not Available Not Available No t Available methylpre dnisolone 4 mg tablets in a dose pack FOLLOW PACKAGE DIRECTIO NS active Not Available Not Available No t Available Fish Oil 500 mg capsule 02/25 completed Prescrib ed Elsewher e: Yes Loca tion: [facility] odify By: amjayda Araujo ncotricia DateTime : 11/10/19 12 02:00:00 PM Not Available Not Available Not Available A To Z tablet 08/23 completed Not Available Not Available Not Available Actonel 35 mg tablet take 1 tablet by oral route every week in the morning, at least 30 min before first food, beverage , or medicati on of day 02/25 completed Prescrib ed Elsewher e: Yes [facility] By: amjayda chavez DateTime : 11/10/19 12 02:00:00 PM Not Available Not Available Not Available bupropion HCl XL 300 mg 24 hr tablet, extended release TAKE 1 TABLET BY MOUTH EVERY MORNING 01/31 completed Not Available Not Available Not Available bupropion HCl XL 150 mg 24 hr tablet, extended release TAKE 1 TABLET BY MOUTH EVERY MORNING active Not Available Not Available No t Available duloxetin e 30 mg capsule,d elayed release TAKE 1 CAPSULE BY MOUTH EVERY DAY active Not Available Not Available No t Available duloxetin e 60 mg capsule,d elayed release TAKE 1 CAPSULE BY MOUTH DAILY active Not Available Not Available No t Available Cinnamon 500 mg capsule 1 capsule every day by oral route. active Not Available Not Available No t Available Calcium+D 500 mg-5 mcg (200 unit) tablet 2014 active Prescrib ed Elsewher e: Yes Loca tion: [facility] odify By: zully chavez DateTime : 02/13/20 15 04:30:00 PM Not Available Not Available Not Available A Thru Z 05/06 completed Not Available Not Available Not Available A Thru Z Select 05/06 completed Not Available Not Available Not Available Calcium 500 + D 500 mg-10 mcg (400 unit) tablet 02/12 completed Prescrib ed Elsewher e: Yes Loca tion: [facility] M odify By: zully dodsonunter DateTime : 11/10/19 12 02:00:00 PM Not Available Not Available Not Available sodium,po tassium,m ag sulfates 17.5 gram-3.13 gram-1.6 gram oral soln MIX AND DRINK DIRECTED . PLEASE FOLLOW THE WRITTEN INSTRUCT IONS THAT WERE MAILED TO YOU active Not Available Not Available No t Available Vitamin D3 50 mcg (2,000 unit) capsule 2 capsules twice a day by oral route. active Not Available Not Available No t Available Imvexxy Maintenan ce Pack 4 mcg vaginal insert Insert 1 vaginal insert twice a week by vaginal route. 08/23 completed samples given Not Available Not Available Not Available Vitals Date Recorded Systolic And Diastolic Provider Name and Address Organization Details Last Updated DateTime 05/20/2021 126/80 mm[Hg] Shiela Zamudio, MAN [facility]- [address], [place], [address], [facility] 05/21/2021 09:47:17 Date Recorded Body height Body mass index (BMI) Body weight Provider Name and Address Organization Details Last Updated DateTime 05/20/2021 170.18 cm 28.8 kg/m2 08016 g Mckenzie Arvizu [facility] 05/20/2021 13:33:38 Date Recorded Body height Body mass index (BMI) Body weight Systolic And Diastolic Provider Name and Address Organization Details Last Updated DateTime 06/20/2021 170.18 cm 28.5 kg/m2 92808.53 g 120/80 mm[Hg] Berta Rothman [facility] 06/20/2021 12:26:06 Date Recorded Systolic And Diastolic Provider Name and Address Organization Details Last Updated DateTime 08/25/2023 130/82 mm[Hg] Shiela Zamudio, [facility]- [address], [place], [address], [facility] 08/25/2023 09:28:26 Date Recorded Body height Body mass index (BMI) Body weight Systolic And Diastolic Systolic And Diastolic Provider Name and Address Organization Details Last Updated DateTime 08/25/2023 170.18 cm 28.8 kg/m2 69597 g 163/97 mm[Hg] 160/100 mm[Hg] Mckenzie Arvizu [facility] 09:15:08 Date Recorded Body height Body mass index (BMI) Body weight Systolic And Diastolic Provider Name and Address Organization Details Last Updated DateTime 12/17/2023 170.18 cm 28.5 kg/m2 59215.53 g 147/82 mm[Hg] Ginger Kruger [facility] 12/17/2023 14:57:36 Date Recorded Body height Body mass index (BMI) Body weight Systolic And Diastolic Provider Name and Address Organization Details Last Updated DateTime 02/01/2024 170.18 cm 28.7 kg/m2 20022.4 g 139/76 mm[Hg] Mei Whitney [facility] 02/01/2024 17:44:46 Social History Question Answer Notes LastModified by Organizat ion Details LastModified Time Tobacco Smoking Status Never Smoker Berta Rothman [facility], [facility] 06/20/2021 12:26:11 Do You Have An Advance Directive? Yes Information n ot available 05/06/2021 Are You Blind Or Do You Have Difficulty Seeing? No Information n ot available 05/05/2021 What Is Your Level Of Caffeine Consumption? Moderate Information not available 12/17/2023 How Much Tobacco Do You Chew? None Information not available 05/06/2021 In The 14 Days Before Symptom Onset, Have You Had Close Contact With A Laboratory-confirm ed COVID-19 While That Case Was Ill? No Information n ot available 05/06/2021 In The 14 Days Before Symptom Onset, Have You Had Close Contact With A Person Who Is Under Investigation For COVID-19 While That Person Was Ill? No Information not available 05/06/2021 Have You Been To An Area Known To Be High Risk For COVID-19? No Information not available 05/06/2021 Are You Deaf Or Do You Have Serious Difficulty Hearing? No Information not available 05/05/2021 What Type Of Diet Are You Following? REGULAR Information n ot available 05/05/2021 What Is The Highest Grade Or Level Of School You Have Completed Or The Highest Degree You Have Received? [id number] Information not available 05/06/2021 Are There Any Guns Present In Your Home? No Information not available 05/06/2021 Do You Use Protection During Sex? No Information not available 05/06/2021 Do You Use Your Seat Belt Or Car Seat Routinely? Yes Information not available 05/05/2021 Do You Have Smoke And Carbon Monoxide Detectors In Your Home? Yes Information not available 05/05/2021 How Much Tobacco Do You Smoke? No Information not available 05/06/2021 Do You Use Sunscreen Routinely? Yes Information not available 05/05/2021 Have You Used IV Drugs? No Information not available 05/06/2021 Do You Have Difficulty Walking Or Climbing Stairs? Yes [email or web address] Information not available 08/25/2023 Sex: Unknown Functional Status Question Answer Note LastModified by Organizat ion Details LastModified Time Do you use any illicit or recreational drugs? No Information not available 05/05/2021 What is your level of alcohol consumption? Occasional Information not available 05/05/2021 Are you able to walk independently without assistance or assistive devices? YESLIMIT Information not available 05/06/2021 Are you able to care for yourself independently? 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 No [email or web address] Information not available 08/25/2023 What is your exercise level? Moderate Information not available 05/06/2021 Mental Status Question Answer Note LastModified by Organization D etails LastModified Time Do you feel stressed (tense, restless, nervous, or anxious, or unable to sleep at night)? [id number] Information not available 12/17/2023 Family History Relationship Description Onset Age of this Age Resolved Age Notes LastModified by Organization Details LastModified Time Father Malignant neoplasm of colon Not available 2020 14:25:03 Father Malignant neoplasm of lung Not available 2020 14:25:10 Medical History Condition Response Other N Blood Transfusion N Dermatologic Disorders N Gestational Diabetes N Anxiety Disorder Y Autoimmune disease N Arthritis N Polyps N Infertility N Acid Reflux (GERD) Y Cancer N Varicosities N Stroke N Neurologic/Epilepsy Y Fibromyalgia N Headaches N Kidney Disease N Heart Problems N Kidney or Bladder Problems N Eating Disorder N Art (IVF or FET) N Hepatitis/Liver Disease N No Past Medical History N Urinary Tract Infection N Asthma N Trauma/Violence N Thrombophilias N Allergies (Food, seasonal, environmental ) N Breast Cancer N Drug/Latex Allergies/Reactions Y Lung Disease N Defects or Inherited Disease N Breast Problem N Hematologic disorders N Anesthesia Complications N History of STI N Deep Vein Thrombosis N Polycystic ovary syndrome N History of abnormal pap N Endometriosis N High Cholesterol Y Thyroid Problems Y GI Problems N Anemia N Psychiatric Illness N Ovarian Cancer N Diabetes N Pulmonary (TB, Asthma) N Eczema N Abuse/Domestic Violence N Depression/ depression Y Heart Disease N Pre-Eclampsia N Hypertension N Osteoporosis N Gynecological History Statement/Question Response Abnormal Pap N Date of Last Mammogram 10/31/2020 Date of LMP 05/10/1997 STIs/STDs N Was last menstrual period normal N Current Control Method Tubal Ligat ion Date of control 06/19/1997 Date of Last Colonoscopy 04/16/2018 Most Recent Bone Density 05/10/2018 Sexually Active? Y Age of first menstrual cycle 13 Date of Last Pap Smear Sexual Problems? N Desired Control Method Hysterectom y LMP Unknown N Obstetrics History GPAL:G 2 P 0 0 0 2 Type Value Living 2 Total 2 Past Encounters Encounter ID Performer Location Encounter Start Date Encounter Closed Date Diagnosis/Indication Diagnosis SNOMED-CT Code Diagnosis ICD10 Code Diagnosis IMO Codes Diagnosis Note [id number] Shiela Zamudio [facility] [address] [address] 05/06/2021 13:57:54 05/07/2021 17:30:45 Urinary symptoms 715808982 R39.9 Cystocele 067895037 N81. 10 Today, we decided to stay with her current pessary size as the next size up is too uncomforta ble & does not fit appropriat jody. In addition, she will use a short course of imvexxy vag supp for the areas that the pessary rubbed on when this device was malpositio nasreen by the pressure from BM's. Will leave the pessary out at night & use the imvexxy. Okay to use during the day as long as it is not causing her any problems.V egetable based moisturizi ng DAILY is also recommende d. It is advised to use miralax daily to keep bowels soft & easy to pass.She is able to remove & reinsert her device herself.I have instructed her to re-positio n her pessary if she feels it becomes malpositio nasreen after having a BM or heavy lifting so that it does not cause discomfort or irritate the vaginal wall tissues.Ariel araujo will give this a try and return in 2-4wks to reassess her status.Her cystocele is only about a grade 2 and easily managed with a pessary for years.Matthew saavedra, we discussed a urogyn consult if we are not able to manage this issue effectivel y.She is a agreeable to this plan of care.All questions answered & samples of imvexxy were given today. Time spent in visit is a total of 32 mins with at least 50% of visit consisting of counseling and review of plan of care.Addit ional precaution haseeb measures were taken to minimize potential exposure to the Covid-19 virus during this patient s visit, including available hand client insights consultant upon arrive, temperatur e check and being asked a series of screening questions. All staff wore face coverings during this encounter, as well as provided additional cleaning and sanitizing of all surfaces, including countertop s, pens, chairs, door handles, light switches, etc, prior to and following the patient s visit. [id number] Shiela Zamudio [facility] [address] [address] 05/20/2021 12:49:29 05/21/2021 11:31:04 Cystocele [id number] N81.10 Today we completed the following & then gave recommenda tions. 1. Applied silver nitrate to the tissues of the ext uterus where there appears to be a sensitive area, likely from post-menop ause changes, that continues to be an issue for her. It is not painful but she just notices that a little pink discolorat ion on toilet tissue will appear after she removes this device. We do not suspect at this time this is related to any issues with endometriu m. Her pessary fits fine & is non-painfu l and achieving our goals which it was intended for. 2. Post-silve r nitrate instructio ns Leave your pessary out for at least 3 daysUse Imvexxy supps nightly x 3 daysThen, may replace device as long as comfortabl e and continue to use imvexxy supps 2x/wk for the next 4wks then will come for f/u appt to see how we are doing. At some point if this area resolves and we are still having any type of pink or other discolorat ion we will consider TVUS to ensure endometriu m is adeqate & no need for EMBx. [id number] Shiela Zamudio [facility] [address] [address] 06/20/2021 12:16:01 06/20/2021 12:48:07 Pessary care [id number] Z46.89 Cleaned pessary.Va ginal skin check is wnl todayPessa ry reinserted .Instructe d to use solid crisco nightly when she removes pessary prior to bedtime.Wi ll stay with this routine & if need to use more imvexxy moving forward we can consider this again.She will return x 1yr or prn if having issues. Time spent in visit is a total of 15 mins with at least 50% of visit consisting of counseling and review of plan of care.Addit ional precaution haseeb measures were taken to minimize potential exposure to the Covid-19 virus during this patient s visit, including available hand client insights consultant upon arrive, temperatur e check and being asked a series of screening questions. All staff wore face coverings during this encounter, as well as provided additional cleaning and sanitizing of all surfaces, including countertop s, pens, chairs, door handles, light switches, etc, prior to and following the patient s visit. [id number] Shiela Zamudio [facility] [address] [address] 08/25/2023 09:01:21 08/25/2023 14:38:25 Gynecologic examination [id number] Z01.419 Take Calcium with Vitamin D 12-1500mg daily. Do monthly self breast exams. It is advised to get annual flu shot in the fall and she could obtain at [facility] or [facility] clinic. If you haven't received the Tdap vaccine in the last 10 years you should obtain one as well. Have mammogram yearly, bone density every 2-3 years and colonoscop y every 5-10 years depending on findings and history. Engage in daily exercise of low impact aerobic exercise 45-60 minutes 4-5 times weekly. Avoid tobacco and illicit drugs as well as using moderation with alcohol intake less than 1-2 8 oz beverages daily. This lifestyle behavior pattern will lead to less health conditions and longer life span. If BMI greater than 25 weight watchers or dietary consult advised. Questions have been answered. Patient appears to understand instructio ns, but if you have any further questions call or respond to this email Pap/hpv USPSTF recommends against screening for cervical cancer in women older than 65yo, those who've had a hysterecto my for non-cancer indication s, & who have had adequate prior screening & are not otherwise at high risk for cervical cancer. STD Screen declinedGe netic Screen discussedC olon Screen PCPDexa Screen PCPRoutine Labs PCPbp 130/82 Screening mammography [id number] Z12.31 PCP-wnl for 2023 Postmenopa usal osteopenia [id number] M85.80 PCP [id number] NGHIA SETH MD [facility] [address] [address] 12/17/2023 14:38:37 12/17/2023 16:22:12 Vaginal pessary in situ [id number] 104 Z96.0 - rare episodes of bleeding with wiping, no heavy bleeding or pain- pessary fitting well, symptoms improved- exam notable for small area of erythema and atrophy; mucosa intact- recommend vaginal estrogen 3x per week x4 weeks, then once weekly for maintenanc e- pessary removed, cleaned, and replaced without issue [id number] NGHIA SETH MD [facility] [address] [address] 02/01/2024 17:18:11 02/02/2024 09:39:05 Abnormal vaginal bleeding [id number] N93.9 - likely 2/2 to skin abrasion or irritation during fall- no current bleeding seen on exam- discussed removing pessary nightly, ensuring correct placement- continue weekly vaginal estrogen to maintain tissue integrity- rtc PRN Health Concerns Section Related Observation LastModified by Organization Detai ls LastModified Time None Recorded Concern Status LastModified by Organization Details LastModified Time None Recorded Advance Directives Directive Y: Payers Insurance Date Sequence Insurance Name Policy Number Policy Gonzales Covered Member ID Gonzales Member ID Guarantor Name 03/12/2025 1 [place] Amparo Jacobo [id number] Amparo Jacobo 03/12/2025 2 [employer] (MEDICARE SUPPLEMENT) Amparo Jacobo [id number] Amparo Jacobo Notes Date Note Type Note Provider Name and Address Organization Details Recorded Time 2 text/html ROS as noted in the HPI Here today for check up on pessary used for cystocele.Feels there definitely has been improvement since prior visit.Device is fitting adequately & staying in place.Still will have a very small amount of pink tinge color on toilet tissue after she removes the device at night. This is not every night and she is not experiencing any pain.The imvexxy supps were used as instructed & feels this was a good addition to her plan of care. Shiela [facility]udio [facility] [address], [place], [address], [facility] 05/21/2021 09:47:34 2 text/html ROS as noted in the HPI Here for pessary & vaginal skin check. Pessary working much better after using a short course of Imvexxy 4mcg for the last few weeks.Not having the pink with wipe that was occurring.No pain.Area we used silver nitrate on is resolved. This seemed to be area that irritation of vaginal skin was coming from. Shiela Zamudio [facility] [address], [place], [address], [facility] 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 For vaginal bleeding, patient reportshistory of menopause having occurredandno history of post menopausal bleeding. For urinary symptoms, patient reportsno hematuria,no incontinence,no nocturia, andno urinary frequency. For vulva, patient reportsno genital lesionandno vulvar atrophy. For vagina, patient reportsnormal vaginal dischargeandno vaginal atrophy.Breast symptomsFor breast, patient reportsno breast lump,no nipple discharge, andno breast pain.Psychological symptomsFor sexual complaints, patient reportsno sexual complaints. For psychological symptoms, patient reportsno depressionandno anxiety.Preventative measuresFor preventive measures, patient reportsencourage regular mammograms starting age 40,encourage self breast examination,encourage regular exercise,encourage no tobacco use,mammogram performed within the past year, andhistory of recent colonoscopy. Shiela Zamudio [facility] [address], [place], [address], [facility] 08/25/2023 14:10:55 4 text/html Patient presents for pessary problem. She reports rare episodes of bleeding with pessary in place. No pain. Had an episode similar to this previously, improved with vaginal estrogen use. Taking pessary out nightly and cleaning it, then replacing in the AM. NGHIA SETH MD [address], [place], [address], [facility] 12/17/2023 15:56:34 text/html Patient presents for follow up after fall. She had an episode of bleeding following the fall. Some pain on left side. No continuous bleeding, has some spotting on toilet paper after wiping. No increased pain with removal or reinsertion of pessary NGHIA SETH MD [address], [place], [address], [facility] 02/01/2024 18:19:29 OBGyn Episode Ob Episode Information Episode Created Date Number of Fetuses Patient Bloodtype Patient rh Status Prepregnancy Weight lbs Domestic Partner Domestic Partner Phone Father Name Mastic Floor Layer Status 05/06/20 21 1 CLOSED Fetus Data First Name Last Name Admitted to NICU Weight (g) Sex Living Outcome Pediatric Complications Fetus ID Race Codes Race Delivery Type 4139.02 7 M Full Term [id number] Vaginal Delivery Escobar Calculation Initial Escobar Date Initial Exam Date Initial Exam Provider Initial Ultrasound Date Last Menstrual Period Date Ultra Sound Weeks Gestation 0 Eighteen To Twenty Week Escobar Update Ultra Sound Date Fundal Height At Umbil Quickening Date Ultra Sound Latest Weeks Gestation Final Escobar Confirmed By Final Escobar Confirmed Date Final Escobar Date Ultra Sound Latest Days Gestation 0 0 Menstrual History Last Menstrual Date Menses Monthly On Bcp Conception Prior Menses Frequency Hcg Plus Date Menarche Onset Age Delivery Information Delivery Date Delivery Type Labor Anesthesia Weeks Gestation Incision Type Labor Labor Length Hrs Delivered By Post Complications Tubal Sterilization Discharge Date Comments 9 40 Discharge Information Feeding Method Contraceptive Method Maternal HG B and HCT Levels Ob Episode Information Episode Created Date Number of Fetuses Patient Bloodtype Patient rh Status Prepregnancy Weight lbs Domestic Partner Domestic Partner Phone Father Name Mastic Floor Layer Status 05/06/20 21 1 CLOSED Fetus Data First Name Last Name Admitted to NICU Weight (g) Sex Living Outcome Pediatric Complications Fetus ID Race Codes Race Delivery Type 3742.13 4 M Full Term [id number] Vaginal Delivery Escobar Calculation Initial Escobar Date Initial Exam Date Initial Exam Provider Initial Ultrasound Date Last Menstrual Period Date Ultra Sound Weeks Gestation 0 Eighteen To Twenty Week Escobar Update Ultra Sound Date Fundal Height At Umbil Quickening Date Ultra Sound Latest Weeks Gestation Final Escobar Confirmed By Final Escobar Confirmed Date Final Escobar Date Ultra Sound Latest Days Gestation 0 0 Menstrual History Last Menstrual Date Menses Monthly On Bcp Conception Prior Menses Frequency Hcg Plus Date Menarche Onset Age Delivery Information Delivery Date Delivery Type Labor Anesthesia Weeks Gestation Incision Type Labor Labor Length Hrs Delivered By Post Complications Tubal Sterilization Discharge Date Comments 1 40 Discharge Information Feeding Method Contraceptive Method Maternal HG B and HCT Levels
--- OUTSIDE RECORDS SUMMARY | 2025-03-12 11:39 | XMS_ITS | Clinical Summary ---
Author Organization [facility] Address [address] [place] [address] Care Team Providers Care Stemhole Borer Name Role Phone Yu Yanez PA-C Unavailable [phone] Yu Yanez PA-C Primary Care Provider [phone] Allergies Active Allergy Reactions Criticality Noted Date Comments Penicillins Hives 03/18/2022 Medications omeprazole (PRILOSEC) 40 MG capsule Take 1 capsule (40 mg total) by mouth daily. Active DULoxetine (CYMBALTA) 60 MG capsule Take 1 capsule (60 mg total) by mouth daily. Active thyroid (ARMOUR) 60 MG OR tablet Take 65 mg by mouth daily. Active ALPRAZolam (XANAX) 0.5 MG tablet Take 1 tablet (0.5 mg total) by mouth as needed for Sleep. Active HYDROcodone-melanie taminophen (NORCO) 5-325 MG tablet Take 1 tablet by mouth every 8 (eight) hours as needed for Pain. Active HYDROcodone-melanie taminophen (NORCO) 5-325 MG tabletIndicatio ns:Acute Pain < 7 Day Supply Take 1 tablet by mouth every 6 (six) hours as needed. Indications: Acute Pain < 7 Day Supply 20 tablet 01/28/2024 Active cephALEXin (KEFLEX) 500 MG capsule Take 1 capsule (500 mg total) by mouth 2 (two) times daily for 7 days. 14 capsule 03/04/2025 03/11/20 25 Active Problems Problem Noted Date Diagnosed Date Right shoulder pain 08/11/2022 Low back pain 06/17/2022 Bilateral hip pain 06/17/2022 Encounters Date Type Department Care Team Description 03/04/2025 1:27 PM CDT - 03/04/2025 2:47 PM CDT Emergency [facility] Room [address] [place] [address] Karin Ojeda MD Urinary Symptoms Discharge Disposition: Home or Self Care (Routine Discharge) 03/04/2025 Travel from Last 3 Months Family History Medical History Relation Comments Breast Cancer Neg Hx Social History Tobacco Use Types Packs/Day Years Used Date Smoking Tobacco: Never Assessed Comments Unknown Sex and Gender Information Value Date Recorded Sex Assigned at Female 03/04/2025 1:09 PM CDT Legal Sex Female 7:24 PM CDT Gender Identity Not on file Sexual Orientation Not on file Last Filed Vital Signs Vital Sign Reading Time Taken Comments Blood Pressure 154/86 03/04/2025 2:30 PM CDT Pulse 100 03/04/2025 1:38 PM CDT Temperature 36.9 C (98.5 F) 03/04/2025 2:30 PM CDT Respiratory Rate 16 03/04/2025 2:30 PM CDT Oxygen Saturation 92% 03/04/2025 2:30 PM CDT Inhaled Oxygen Concentration - - Weight 80.7 kg (178 lb) 03/04/2025 1:38 PM CDT Height 170.2 cm (5' 7) 03/04/2025 1:38 PM CDT Body Mass Index 27.88 03/04/2025 1:38 PM CDT Plan of Treatment Health Maintenance Due Date Last Done Comments Colorectal Cancer Screening Colonoscopy (10 Years) 1956 Hepatitis C 1974 Pneumococcal Vaccine: 50+ Years (1 of 1 - PCV) 2006 Zoster Vaccines (1 of 2) 2006 Annual Medicare Wellness Visit 2021 Dexa Scan (General) 2021 COVID-19 Vaccine (3 - season) 2025 07/28/2020, 07/06/2020 Influenza Adult (#1) 2025 03/02/2022, 02/27/2021, 02/15/2020, Additional history exists DTaP, Tdap and Td Vaccines (2 - Td or Tdap) 09/08/2026 09/08/2016 Mammogram Screening 09/27/2026 09/27/2024, 07/14/2023, 11/29/2020 RSV Immunization or 60+ Years (1 - 1-dose 75+ series) 2031 Hepatitis A Vaccines Aged Out No long er eligible based on patient's age to complete this topic Meningococcal B Vaccine Aged Out No l onger eligible based on patient's age to complete this topic Meningococcal Vaccine Aged Out No adri petra eligible based on patient's age to complete this topic RSV Immunizations Under 20 Months Aged Out No longer eligible based on patient's age to complete this topic Procedures Procedure Name Priority Date/Time Associated Diagnosis Comments URINALYSIS MICRO ONLY STAT 03/04/2025 1:44 PM CDT HC URINALYSIS AUTO W/O MICRO STAT 03/04/2025 1:44 PM CDT MG SCREENING W CAROLINA ELAN DIGI Routine 09/27/2024 11:17 AM CDT Visit for screening mammogram from Last 3 Months or Most Recently Relevant to Health Maintenance Results * (ABNORMAL) URINALYSIS (03/04/2025 1:44 PM CDT) COLOR (U) YELLOW 03/04/2025 2:25 PM CDT [facility] TRANSPARENCY CLEAR 03/04/2025 2:25 PM CDT [facility] SPECIFIC GRAVITY (U) <1.005 1.000 - 1.030 03/04/2025 2:25 PM CDT [facility] U PH 6.0 5.0 - 9.0 03/04/2025 2:25 PM CDT [facility] LEUKOCYTES (U) 2+(A) NEGATIVE 03/04/2025 2:25 PM CDT [facility] NITRITES NEGATIVE NEGATIVE 03/04/2025 2:25 PM CDT [facility] PROTEIN RANDOM (U) NEGATIVE NEGATIVE 03/04/2025 2:25 PM CDT [facility] GLUCOSE (U) NEGATIVE NEGATIVE 03/04/2025 2:25 PM CDT [facility] KETONES MG/DL (U) NEGATIVE NEGATIVE 03/04/2025 2:25 PM CDT [facility] BILIRUBIN (U) NEGATIVE NEGATIVE 03/04/2025 2:25 PM CDT [facility] BLOOD (U) 3+(A) NEGATIVE 03/04/2025 2:25 PM CDT [facility] URINE CARPENTER WBC CLUMPS PRESENT 03/04/2025 2:25 PM CDT [facility] URINE SPECIMEN OBTAINED BY CLEAN CATCH PROCEDURE / Unknown 03/04/2025 1:44 PM CDT us Karin Ojeda MD URINE ORDERABLES Renée lyle Result [facility] [address] [place] [id number], * URINALYSIS MICRO ONLY (03/04/2025 1:44 PM CDT) WBC/HPF 10-25 0 - 5 /HPF 03/04/2025 2:25 PM CDT [facility] RBC/HPF 5-10 0 - 5 /HPF 03/04/2025 2:25 PM CDT [facility] EPI/HPF FEW /HPF 03/04/2025 2:25 PM CDT [facility] BACTERIA (U) FEW /HPF 03/04/2025 2:25 PM CDT [facility] 03/04/2025 1:44 PM CDT Karin Ojeda MD URINE ORDERABLES Renée lyle Result [facility] [address] [place] [address], * MG SCREENING W CAROLINA ELAN DIGI (09/27/2024 11:17 AM CDT) Anatomical Region Laterality Modality Breast Bilateral Mammography 09/27/2024 11:3 4 AM CDT Impressions 09/27/2024 11:35 AM CDT IMPRESSION: No suspicious mammographic findings. Recommendation: 1. Routine Screening, Bilateral Assessment: ACR BI-RADS 2 - BENIGN FINDING(S) Ordered By: SYLVIA MERRITT Interpreted By: Alpesh Hayes, 09/27/2024 11:34 AM Narrative 09/27/2024 11:35 AM CDT [facility] [address] [place] [address] Examination: Screening bilateral mammogram Exam Date/Time: 09/27/2024 10:33 AM Clinical history: No current complaints. Comparison: 11/29/2020, 07/14/2023 Technique: Digital screening mammography of both breasts was performed. Breast tomosynthesis acquisitions were obtained and reviewed. This study was read with the assistance of a computer-aided detection system. Tissue density: There are scattered areas of fibroglandular density. Findings: No suspicious masses, malignant appearing calcifications, skin thickening or other abnormalities are present. No significant change from the prior exam. Sylvia Merritt MD MAMMO Final Result from Last 3 Months or Most Recently Relevant to Health Maintenance Insurance [employer] Care Teams Stemhole Borer Relationship Specialty Start Date End Date Yu Yanez PA-C [address] [place] [address] PCP - General SMALL BUSINESS DIRECTOR 08/25/22 Yu Yanez PA-C [address] [place] [address] SMALL BUSINESS DIRECTOR 08/11/22
--- OUTSIDE RECORDS SUMMARY | 2025-03-12 11:39 | XMS_ITS | Encounter Summary ---
Author Organization [facility] Address [address] [place] [address] Care Team Providers Care Rn Paralegal Name Role Phone Unavailable Primary Care Provider Unavailabl e Encounter Details Date Type Department Care Team (Late st Contact Info) Description 01/12/2024 Lab Requisition [facility] Physician [facility] DermPath Lab [address] [place] [address] Meme Naik MD [address] [place] [address] Social History Tobacco Use Types Packs/Day Years Used Date Smoking Tobacco: Never Assessed Comments Unknown Sex and Gender Information Value Date Recorded Sex Assigned at Not on file Legal Sex Female 2:11 PM CDT Gender Identity Not on file Sexual Orientation Not on file documented as of this encounter Plan of Treatment Not on file documented as of this encounter Procedures Procedure Name Priority Date/Time Associated Diagnosis Comments DERMATOPATHOLOGY Routine 01/12/2024 1:51 PM CDT documented in this encounter Results * DERMATOPATHOLOGY (01/12/2024 1:51 PM CDT) Case Report Dermatopathology Report Case: [id number] Authorizing Provider: Meme Naik MD Collected: 01/12/2024 01:51 PM Ordering Location: [facility] Physician [facility] - Received: 01/14/2024 07:21 AM DermPath Lab Pathologist: Nahed Dominique MD Specimen: Skin, right supercheek eyelid 11:18 AM CDT DERMATOPATHOLOGY LABORATORY Final Diagnosis Specimen A. SKIN, right supercheek eyelid: SQUAMOUS CELL CARCINOMA IN SITU, PRESENT AT THE BASE OF THE SPECIMEN (D04.112) ARISING IN A SEBORRHEIC KERATOSIS, IRRITATED AND INFLAMED (L82.0) (see microscopic description and comment) 11:18 AM T DERMATOPATHOLOGY LABORATORY at 1118 CDT Clinical History R/O SCC 11:18 AM CDT DERMATOPATHOLOGY LABORATORY Gross Description Specimen A: Received is one formalin filled container labeled with the patient's name and designated right supercheek eyelid. The specimen consists of a shave biopsy measuring 4x4x2 mm. Jar 0. 11:18 AM T DERMATOPATHOLOGY LABORATORY Microscopic Description Specimen A. SKIN, right supercheek eyelid: The epidermis shows parakeratosis, full thickness disorderly maturation of keratinocytes, mitoses at different levels, and dyskeratotic cells. Mib-1 stain highlights proliferating keratinocytes at all levels of the epidermis. The lesion extends to the base of the biopsy. The adjacent epidermis shows acanthosis, papillomatosis, hyperkeratosis, and squamous eddies. Mib-1 stain highlights proliferating keratinocytes confined to the basilar epidermis. There is a lymphohistiocytic infiltrate within the papillary dermis. Additional deeper sections were obtained and reviewed. COMMENT: An invasive squamous cell carcinoma cannot be ruled out. 11:18 AM CDT DERMATOPATHOLOGY LABORATORY Disclaimer An external and internal positive and negative controls are appropriate for the histochemical, immunohistochemical and immunofluorescence stain(s) in this case (if any), except where stated explicitly. The performance characteristics of the stain(s) cited in this report were developed and its performance characteristic determined by the Dermatopathology Laboratory at [facility], directed by Dr. Hailey Asher. These tests need not be, and therefore are not, approved by the [place] Food and Drug Administration. The tests are used for clinical purposes. Billing Codes Specimen Charges Stain Charges 56697 1 [id number] 1 11:18 AM CDT DERMATOPATHOLOGY LABORATORY Embedded Images 11:18 AM CDT DERMATOPATHOLOGY LABORATORY Pathology/Cytolo gy TISSUE SPECIMEN FROM SKIN / Unknown 01/12/2024 1:51 PM CDT 01/14/2024 7:21 AM CDT us Meme Naik MD LAB - PATHOLOGY/CYTOLOGY ORD ERABLES Final Result DERMATOPATHOLOGY LABORATORY [facility] - Department of Dermatology [facility] [address] [place] [address], [address] [phone] documented in this encounter Visit Diagnoses Not on filedocumented in this encounter
--- OUTSIDE RECORDS SUMMARY | 2025-03-12 11:39 | XMS_ITS | Clinical Summary ---
Author Organization [facility] Address [address] [place] [address] Care Team Providers Care Balloon Artist Name Role Phone Barrie Merritt MD Primary Care Provider Allergies Active Allergy Reactions Criticality Noted Date Comments Cefuroxime Swelling Medium 12/10/2017 Ezetimibe Stomach upset Low 06/03/2024 Penicillins Rash,Hives Medium 03/18/2022 Reaction: RASH Piroxicam Pollen Extracts Other (See comments) Reaction: OTHER REACTION, Rosuvastatin Unknown Low 06/03/2024 Medications ALPRAZolam (XANAX) 0.5 mg tablet 2 8 Active thyroid (ARMOUR THYROID) 60 mg tablet daily. Active calcium carbonate (OS-DENNY) 1,500 mg (600 mg of elemental calcium) tablet daily. Acti ve FLONASE ALLERGY RELIEF 50 mcg/actuation nasal spray USE 2 SPRAYS IEN D 0 8 Active omeprazole (PriLOSEC) 40 mg capsule 8 Active cholecalciferol (VITAMIN D-3) 3,000 unit tablet 2 times daily. Active cetirizine (ZyrTEC) 10 mg tablet Take 1 tablet (10 mg total) by mouth daily Active AFLURIA QUAD 2938-2478, PF, 60 mcg/0.5 mL syringe ADM 0.5ML IM UTD 0 8 Active polyethylene glycol (MIRALAX) 17 gram/dose powder Active DULoxetine 60 mg capsule, delayed rel sprinkle 9 Active meloxicam (MOBIC) 7.5 mg tabletIndication s:Chronic low back pain with left-sided sciatica, unspecified back pain laterality TAKE 1 TABLET(7.5 MG) BY MOUTH DAILY 30 tablet 2 5 Active cinnamon bark 500 mg capsule 1 capsule every day by oral route. Active flaxseed oiL 1,000 mg capsule Take 1 capsule (1,000 mg total) by mouth 3 Active HYDROcodone-acet aminophen (NORCO) 5-325 mg per tabletIndication s:Pain Take 1 tablet by mouth every 8 (eight) hours as needed for pain 90 tablet 5 Active HYDROcodone-acet aminophen (NORCO) 5-325 mg per tabletIndication s:Pain Take 1 tablet by mouth every 8 (eight) hours as needed for pain 90 tablet 5 02/27/20 25 Discontinu ed(Reorder ) Active Problems Problem Noted Date Diagnosed Date GERD without esophagitis 01/22/2025 Ear discomfort 01/22/2025 Depression 01/22/2025 Chronic sinus complaints 01/22/2025 Chronic pain of left hand 01/22/2025 Arthritis of carpometacarpal (CMC) joint of righ t thumb 01/22/2025 Anxiety disorder, unspecified 01/22/2025 Lumbosacral radiculopathy du e to degenerative joint disease of spine 01/22/2025 Major depressive disorder, single episode, unspe cified 01/22/2025 Mixed hyperlipidemia 01/22/2025 Nasal folliculitis 01/22/2025 Osteopenia 01/22/2025 Otitis media 01/22/2025 PND (post-nasal drip) 01/22/2025 Acute sinusitis 01/22/2025 Upper respiratory infection 01/22/2025 Pain in right shoulder 08/11/2022 Leg pain, bilateral 08/24/2017 Bilateral hip pain 06/26/2016 Heartburn 07/17/2015 Constipation 07/17/2015 Arthritis 07/17/2015 Irritable mood 07/17/2015 Low back pain 07/17/2015 Muscle pain 07/17/2015 Thyroid disorder 07/17/2015 Weakness 07/17/2015 Visual impairment 07/17/2015 High blood leukocyte count 02/12/2015 Overview (01/22/2025): Elevated white blood cell count, unspecified;Recorded Elsewhere: No Location: [facility] Source: EHR Chronic: N Practice ID: [id number] Billable Time: 04:30:00 PM Lumbar radiculopathy 11/29/2014 Degeneration of intervertebral disc of lumbar re gion 11/29/2014 Numbness 03/16/2012 Increased frequency of urination 02/04/2012 Overview (01/22/2025): Urinary frequency;Practice ID: [id number] Microscopic hematuria 02/04/2012 Overview (01/22/2025): HEMATURIA MICROSCOPIC;Practice ID: [id number] Midline cystocele 11/25/2011 Overview (01/22/2025): Cystocele, midline;Practice ID: [id number] Surgical follow-up care 09/24/2011 Pronation deformity of foot 09/15/2011 Paralysis of common peroneal nerve 10/23/2010 Encounters Date Type Department Care Team Description 02/26/2025 1:20 PM CDT Office Visit [facility] Medicine Orthopaedic Surgery [address] [place] [address] [place] [address] Magdy Gamez MD Lesion of right sciatic nerve (Primary Dx) 01/22/2025 12:30 PM CDT Office Visit [facility] Medicine Neurosurgery [address] [place] [address] [address] [place] [address] Pedro Mae MD Lumbar radiculopathy (Primary Dx) 01/22/2025 11:42 AM CDT - 01/22/2025 11:59 PM CDT Hospital Encounter [id number] [address] [place] [address] [address] [place] [id number] Low back pain, non-specific Discharge Disposition: Discharge to home or self care 01/22/2025 Orders Only [facility] Medicine Neurosurgery [address] [place] [address] [address] [place] [address] Pedro Mae MD Leg pain, bilateral (Primary Dx); Low back pain, unspecified back pain laterality, unspecified chronicity, unspecified whether sciatica present; Lumbar radiculopathy; Lumbosacral radiculopathy due to degenerative joint disease of spine 01/19/2025 4:53 PM CDT - 01/19/2025 11:59 PM CDT Hospital Encounter [facility] [address] [place] [address] Discharge Disposition: Discharge to home or self care 01/19/2025 Orders [facility] Medicine Neurosurgery [address] [facility] Medical Office [address] [place] [address] Pedro Mae MD Low back pain, non-specific (Primary Dx) 01/09/2025 [facility]phone [facility] Medicine Scheduling [address] [place] [address] Floresita Garcia from Last 3 Months Immunizations Immunization Administration Dates Next Due Flucelvax Influenza Quad 02/21/2017 Influenza, Quadrivalent, Rec ombinant, Egg Free, Preservative Free, Intramuscular 02/15/2020 Influenza, Quadrivalent, Spl it, Preservative Free, Intramuscular 03/02/2022,02/27/2021,01/31/2018,01/30 Pfizer SARS-CoV-2 Monovalent Vaccination (12+ Yrs) PURPLE 07/28/2020,07/06/2020 Tdap 09/08/2016 Surgical History Surgery Date Site/Laterality Comments EPIDURAL INJECTION LUMBOSACRAL 08/08/2014 N/A HIP SURGERY HYSTERECTOMY DECOMPRESSION NERVES UNSPECIFIED / PLANTAR DIGITAL Family History Medical History Relation Name Comments Cancer Father Bipolar disorder Mother Relation Name Status Comments Father Mother Social History Tobacco Use Types Packs/Day Years Used Date Smoking Tobacco: Never Smokeless Tobacco: Never Alcohol Use Standard Drinks/Week Comments No 0 (1 standard drink = 0.6 oz pur e alcohol) Comments Unknown Sex and Gender Information Value Date Recorded Sex Assigned at Not on file 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 Gender Identity Not on file Sexual Orientation Not on file Last Filed Vital Signs Vital Sign Reading Time Taken Comments Blood Pressure 129/68 12/24/2015 8:25 AM CDT Pulse 88 12/24/2015 8:25 AM CDT Temperature - - Respiratory Rate - - Oxygen Saturation 98% 07/17/2015 4:01 PM 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 Inhaled Oxygen Concentration - - Weight 79.4 kg (175 lb) 01/22/2025 12:12 PM CDT Height 170.2 cm (5' 7) 12/10/2017 1:43 PM CDT Body Mass Index 27.41 12/10/2017 1:43 PM CDT Plan of Treatment Health Maintenance Due Date Last Done Comments Colon Cancer Screening-Colonoscopy 1955 Depression Screening 1955 Fall Risk Assessment 1955 Hepatitis C Screening 1955 Osteoporosis Screening-Bone Density Scan 1955 Hepatitis B Screening 1974 Pneumococcal vaccine 65+ (1 of 1 - PCV) 2006 Zoster Vaccine (1 of 2) 2006 Well Visit 65+ 2021 Covid-19 Vaccine (3 - 2024-2 6 season) 2025 07/28/2020, 07/06/2020 Influenza Vaccine (#1) 2025 2, 02/27/2021, 02/15/2020, Additional history exists Breast Cancer Screening-Mammogram 09/27/2025 09/27/2024, 09/27/2024, 07/14/2023, Additional history exists DTaP/Tdap/Td Vaccine (2 - Td or Tdap) 09/08/2026 09/08/2016 Procedures Procedure Name Priority Date/Time Associated Diagnosis Comments XR SCOLIOSIS 6 OR MORE VIEWS Schedule Routine, Read Routine (OP Routine) 01/22/2025 12:02 PM CDT Low back pain, non-specific NEURO MR OUTSIDE REFERENCE Routine 01/19/2025 4:53 PM CDT from Last 3 Months Results * XR Scoliosis 6 or More Views (01/22/2025 12:02 PM CDT) Anatomical Region Laterality Modality Spine N/A Computed Radiogr aphy 01/22/2025 12:5 3 PM CDT Impressions 01/22/2025 12:53 PM CDT Diffuse moderate to severe lumbar spine degenerative disc disease. Electronically signed by: Jace Martines M.D. Narrative 01/22/2025 12:53 PM CDT EXAMINATION: XR SCOLIOSIS 6 OR MORE VIEWS HISTORY: Back pain FINDINGS: AP and lateral standing images of the entire spine and 4 views of the lumbar spine were performed with comparison made to 06/08/2022. There is mild lumbar levoscoliosis. There is no coronal imbalance or pelvic obliquity. There is a revision right hip arthroplasty with acetabular augmentation. There is increased thoracic kyphosis. There is anterior sagittal imbalance. There is diffuse moderate to severe lumbar spine degenerative disc disease. There is mild retrolisthesis L1-L3 which does not change on flexion extension. Procedure Note Jace Martines MD PhD - 01/22/2025 EXAMINATION: XR SCOLIOSIS 6 OR MORE VIEWS HISTORY: Back pain FINDINGS: AP and lateral standing images of the entire spine and 4 views of the lumbar spine were performed with comparison made to 06/08/2022. There is mild lumbar levoscoliosis. There is no coronal imbalance or pelvic obliquity. There is a revision right hip arthroplasty with acetabular augmentation. There is increased thoracic kyphosis. There is anterior sagittal imbalance. There is diffuse moderate to severe lumbar spine degenerative disc disease. There is mild retrolisthesis L1-L3 which does not change on flexion extension. IMPRESSION: Diffuse moderate to severe lumbar spine degenerative disc disease. Electronically signed by: Jace Martines M.D. us Pedro Mae MD IM XR PROCEDURES Final Re sult * Neuro MR Outside Reference (01/19/2025 4:53 PM CDT) Impressions [facility] - 01/19/2025 4:53 PM CDT These images are for Reference purposes only and have not been reviewed by [facility] Radiology. There will be no report generated by a [facility] Radiologist. Narrative [facility] - 01/19/2025 4:53 PM CDT EXAMINATION: Images For Reference Purposes Only us Pedro Mae MD IMG MRI PROCEDURES Final R esult [facility] from Last 3 Months Insurance [employer] Member Subscriber Plan / Payer (Ef fective 2017-Present) Name:Juan Eastman Relation to Subscriber:Self Name:JUAN EASTMAN Payer ID:[id number] Group ID:Not on file Type:COMMERCIAL Address: [facility] [address] [place], [place] MEDICARE PH[employer]IANS [facility] Care Teams Balloon Artist Relationship Specialty Start Date End Date Barrie Merritt MD PCP - General 10/02/17
--- OUTSIDE RECORDS SUMMARY | 2025-03-12 11:39 | XMS_ITS | Encounter Summary ---
Author Organization [facility] Healthcare Address [address] [place] [address] Care Team Providers Care Gastroenterology Nurse Name Role Phone Barrie Merritt MD Primary Care Provider Encounter Details Date Type Department Care Team (Late st Contact Info) Description 03/21/[address] 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
--- OUTSIDE RECORDS SUMMARY | 2025-03-12 11:39 | XMS_ITS | Encounter Summary ---
Author Organization [facility] Address [address] [place] [address] Phone Care Team Providers Care Kiln Tester Name Role Phone Magdy Gamez MD Primary Care Provider Magdy Gamez MD Primary Care Provider Barrie Merritt MD Primary Care Provider [phone] Encounter Details Date Type Department Care Team (Latest Contact Info) Description 09/09/2017 Orders Only [facility] CONVERSION Scanning, Provider Social History Tobacco Use Types Packs/Day Years Used Date Smoking Tobacco: Never Assessed Comments Unknown Sex and Gender Information Value Date Recorded Sex Assigned at Not on file 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 Gender Identity Not on file Sexual Orientation Not on file documented as of this encounter Plan of Treatment Not on file documented as of this encounter Procedures Procedure Name Priority Date/Time Associated Diagnosis Comments VASCULAR LABORATORY REPORT 09/09/2017 2:36 PM CDT documented in this encounter Results * VASCULAR LABORATORY REPORT (09/09/2017 2:36 PM CDT) Anatomical Region Laterality Modality Ultrasound us Provider Scanning CV VASCULAR PROCEDURES Final R esult documented in this encounter Visit Diagnoses Not on filedocumented in this encounter Care Teams Kiln Tester Relationship Specialty Start Date End Date Magdy Gamez MD [address] [facility] [address] [address] PCP - General 07/06/17 09/14/17 Magdy Gamez MD [address] [facility] [address] [place] [address] PCP - General 09/15/17 10/01/17 Barrie Merritt MD [address] [facility] [address] [address] PCP - General 10/02/17 documented as of this encounter
== END 2025-03-12 10:35 | disposition home or self-care (01) ==
LOC: ANHFOHIMG 10:34
PROVIDERS: PCP Nurse Practitioner Family; Visit Provider Nurse Practitioner Family
DX: Z78.0 Asymptomatic menopausal state (principal); M85.852 Other specified disorders of bone density and structure, left thigh
CPT/HCPCS: 77080